=== PATIENT | female | born 1955 | race Caucasian/White ===

== ENCOUNTER 2017-01-13 11:44 | Emergency (ER) | payer OTHER ==
[2017-01-13] MEDS ORDERED: CLINDAMYCIN HCL 150 MG CAPSULE (FP) PO ONE (12:03)
[2017-01-13 12:04] VITALS: BP 144/86; PULSE 75; TEMP 99.8; BMI 25.0
[2017-01-13] MEDS ORDERED: CLINDAMYCIN HCL 150 MG CAPSULE (FP) ONE (12:07)
--- NOTE | 2017-01-13 12:09 | PDOC ---
History of Present Illness - General Chief Complaint: Redness To Affected Area Stated Complaint: LEFT ELBOW REDNESS & SWELLING Time Seen by Provider: 01/13/17 11:54 History Source: Patient Exam Limitations: No Limitations - History of Present Illness Initial Comments: 01/13/17 12:11 61-year-old female with past medical history of cellulitis, asthma presents with left forearm cellulitis. 2 days ago, the patient was picking at a scab and then started noticing increasing redness at the proximal left forearm. Does not extend to the left elbow. Denies any changes in the range of motion of the left elbow.*Reporting low-grade temperatures of 100. Denies cough, vomiting, diarrhea. Otherwise nontoxic appearing. Past History - Past Medical History Allergies/Adverse Reactions: Allergies Allergy/AdvReac Type Severity Reaction Status Date / Time Penicillins Allergy Rash Verified 03/08/13 10:13 Sulfa (Sulfonamide Allergy Rash Verified 03/08/13 10:13 Antibiotics) Home Medications: Ambulatory Orders Salmeterol/Fluticasone [Advair 250Mcg/50Mcg] 1 inh PO BID 06/25/13 Clindamycin [Cleocin -] 450 mg PO Q8H #63 capsule 01/13/17 Fexofenadine HCl [Nidia Allergy] 180 mg PO DAILY PRN 01/13/17 Tramadol HCl 50 mg PO DAILY PRN 01/13/17 Asthma: Yes - Suicide/Smoking/Psychosocial Hx Smoking Status: Yes Smoking History: Current every day smoker Have you smoked in the past 12 months: Yes Number of Cigarettes Smoked Daily: 20 'Breaking Loose' booklet given: 03/08/13 Hx Alcohol Use: No Drug/Substance Use Hx: No Substance Use Type: None Hx Substance Use Treatment: No Review of Systems - Review of Systems Able to Perform ROS?: Yes Comments:: 01/13/17 12:12 GENERAL/CONSTITUTIONAL: +fever. no weakness HEAD, EYES, EARS, NOSE AND THROAT: No change in vision. No ear pain or discharge. No sore throat. CARDIOVASCULAR: No chest pain or shortness of breath. RESPIRATORY: No cough, wheezing, or hemoptysis. GASTROINTESTINAL: No abdominal pain, nausea, vomiting, diarrhea, or decreased PO intolerance. GENITOURINARY: No dysuria, frequency, or change in urination. MUSCULOSKELETAL: No joint or muscle swelling or pain. No neck or back pain. SKIN: + Skin Infection NEUROLOGIC: No headache, vertigo, loss of consciousness, or change in strength/ sensation. ENDOCRINE: No increased thirst. No abnormal weight change. HEMATOLOGIC/LYMPHATIC: No anemia, easy bleeding, or history of blood clots. ALLERGIC/IMMUNOLOGIC: No hives or skin allergy. *Physical Exam - Physical Exam Comments: 01/13/17 12:13 GENERAL: Awake, alert, and fully oriented, in no acute distress. HEAD: No signs of trauma EYES: PERRLA, EOMI, sclera anicteric, conjunctiva clear ENT: Auricles normal inspection, hearing grossly normal, nares patent, oropharynx clear without exudates. NECK: Normal ROM, supple, no lymphadenopathy, JVD, or masses EXTREMITIES: Normal range of motion, no edema. No clubbing or cyanosis. No cords, erythema, or tenderness NEUROLOGICAL: Cranial nerves II through XII grossly intact. Normal speech, normal gait SKIN: Warm, Dry, normal turgor. ~2x3 cm erythema with very mild drainage proximal left forearm. Does not extend into the left elbow. No fluctuance but mild induration. Medical Decision Making - Medical Decision Making 01/13/17 12:13 Vital Signs Temp Pulse Resp BP Pulse Ox 99.8 F H 75 15 144/86 97 01/13/17 11:45 01/13/17 11:45 01/13/17 11:45 01/13/17 11:45 01/13/17 11:45 Pt reports prior history of staph infection. Wound culture obtained. However, wound does not have an abscess to incise. Given drug allergies, will prescribe clindamycin. Instructed pt that if she develops diarrhea to return to the ER. Pt states that she can follow up with DR. Graf in the next few days. Discharge diagnosis: cellulitis I discussed the physical exam findings, ancillary test results and final diagnoses with the patient. I answered all of the patient's questions. The patient was satisfied with the care received and felt comfortable with the discharge plan and treatment plan. The patient will call their primary care physician within 24 hours to arrange follow-up and will return to the Emergency Department with any new, persistant or worsening symptoms. *DC/Admit/Observation/Transfer Diagnosis at time of Disposition: Cellulitis Qualifiers: Site of cellulitis: extremity Site of cellulitis of extremity: upper extremity Laterality: left Qualified Code(s): L03.114 - Cellulitis of left upper limb - Discharge Dispostion Condition at time of disposition: Good Admit: No - Prescriptions Prescriptions: Clindamycin [Cleocin -] 450 mg PO Q8H #63 capsule - Referrals Referrals: Corey Graf MD [Primary Care Provider] - - Patient Instructions Printed Discharge Instructions: DI for Cellulitis -- Adult Additional Instructions: Please take the clindamycin 450 mg every 8 hours for 7 days. It is important that you complete these antibiotics. If you develop severe diarrhea from this medication, please stop and return to the ER. I have obtained a wound culture. Please call your doctor and have your wound culture followed up.
[2017-01-13] MEDS ORDERED: ACETAMINOPHEN 325 MG TABLET (FP) PO ONE (12:11)
[2017-01-13] MEDS ORDERED: ACETAMINOPHEN 325 MG TABLET (FP) ONE (12:13)
== END 2017-01-13 12:29 | disposition home or self-care (01) ==
LOC: FER 11:44
DX: L03.114 Cellulitis of left upper limb (principal); J45.909 Unspecified asthma, uncomplicated; F17.210 Nicotine dependence, cigarettes, uncomplicated
CPT/HCPCS: 87070; 87186; 87205; 99281-25

== ENCOUNTER 2017-03-25 17:54 | Emergency (ER) | payer OTHER ==
[2017-03-25 17:58] VITALS: BMI 24.7
[2017-03-25 18:10] VITALS: BP 147/84; PULSE 77; TEMP 97.9
--- NOTE | 2017-03-25 18:13 | PDOC ---
History of Present Illness - History of Present Illness Initial Comments: 03/25/17 18:25 61 year old female, with significant past medical history of osteoarthritis (on tramadol), asthma, and cellulitis, who presents to the emergency room with right shoulder and right elbow pain s/p mechanical fall at work today. The patient states that she was carrying a bowl of fruit in the kitchen when she fell and landed on her right side. She denies LOC, head trauma, headache, lightheadedness, dizziness prior to and after the fall. She reports that the shoulder and elbow pain is worse with overhead movements and abducting the right arm. She also reports pain to the right side of her neck that is worse with movement. She notes that she took tramadol for right knee arthritis around 2:00pm. Denies back pain. She denies any other injuries. Allergies: penicillin, sulfa PCP: Dr. Graf Ortho: Dr. Welch <Tejal Friend - Last Filed: 03/25/17 18:35> - General History Source: Patient Exam Limitations: No Limitations <Thor Pozo - Last Filed: 03/28/17 07:13> - General Chief Complaint: Pain, Acute Stated Complaint: right arm pain Time Seen by Provider: 03/25/17 17:59 Past History <Tejal Friend - Last Filed: 03/25/17 18:35> - Past Medical History Asthma: Yes COPD: No - Suicide/Smoking/Psychosocial Hx Smoking Status: Yes Smoking History: Current every day smoker Have you smoked in the past 12 months: Yes Number of Cigarettes Smoked Daily: 10 Information on smoking cessation initiated: Yes 'Breaking Loose' booklet given: 03/25/17 Hx Alcohol Use: No Drug/Substance Use Hx: No Substance Use Type: None Hx Substance Use Treatment: No <Thor Pozo - Last Filed: 03/28/17 07:13> - Past Medical History Allergies/Adverse Reactions: Allergies Allergy/AdvReac Type Severity Reaction Status Date / Time Penicillins Allergy Rash Verified 03/25/17 17:55 Sulfa (Sulfonamide Allergy Rash Verified 03/25/17 17:55 Antibiotics) Home Medications: Ambulatory Orders Salmeterol/Fluticasone [Advair 250Mcg/50Mcg] 1 inh PO BID 03/06/14 Tramadol HCl 50 mg PO DAILY PRN 01/13/17 Docusate Sodium [Colace -] 100 mg PO TID #21 capsule 03/25/17 Ibuprofen 400 mg PO Q6H PRN #20 tablet 03/25/17 Oxycodone HCl/Acetaminophen [Percocet 5-325 mg Tablet] 1 tab PO Q6H PRN #20 tablet MDD 4 03/25/17 Review of Systems - Review of Systems Able to Perform ROS?: Yes Comments:: 03/25/17 18:26 GENERAL/CONSTITUTIONAL: No fever or chills. No weakness. HEAD, EYES, EARS, NOSE AND THROAT: No change in vision. No ear pain or discharge. No sore throat. CARDIOVASCULAR: No chest pain or shortness of breath. RESPIRATORY: No cough, wheezing, or hemoptysis. GASTROINTESTINAL: No nausea, vomiting, diarrhea or constipation. GENITOURINARY: No dysuria, frequency, or change in urination. MUSCULOSKELETAL: +right sided neck pain, shoulder pain, and elbow pain. No back pain. SKIN: No rash NEUROLOGIC: No headache, vertigo, loss of consciousness, or change in strength/ sensation. ENDOCRINE: No increased thirst. No abnormal weight change. HEMATOLOGIC/LYMPHATIC: No anemia, easy bleeding, or history of blood clots. ALLERGIC/IMMUNOLOGIC: No hives or skin allergy. <Tejal Friend - Last Filed: 03/25/17 18:35> *Physical Exam - Vital Signs Last Vital Signs Temp Pulse Resp BP Pulse Ox 97.9 F 77 18 147/84 100 03/25/17 17:55 03/25/17 17:55 03/25/17 17:55 03/25/17 17:55 03/25/17 17:55 - Physical Exam Comments: 03/25/17 18:27 GENERAL: Awake, alert, and fully oriented, in no acute distress HEAD: No signs of trauma EYES: PERRLA, EOMI, sclera anicteric, conjunctiva clear NECK: Normal ROM, supple, no lymphadenopathy, JVD, or masses RIGHT UPPER EXTREMITY: +limited ROM secondary to pain. 2+ distal pulse. Medial radial nerve sensation intact. NEUROLOGICAL: Cranial nerves II through XII grossly intact. Normal speech, normal gait SKIN: Warm, Dry, normal turgor, no rashes or lesions noted. <Tejal Friend - Last Filed: 03/25/17 18:35> - Vital Signs Last Vital Signs Temp Pulse Resp BP Pulse Ox 97.9 F 77 18 147/84 100 03/25/17 17:55 03/25/17 17:55 03/25/17 17:55 03/25/17 17:55 03/25/17 17:55 - Physical Exam Comments: 03/28/17 07:12 TTP proximal R humerus. Sensation over the deltoid. 2+ radial pulse. Strength intact in the median/radian/ulnar nerve distribution <Thor Pozo - Last Filed: 03/28/17 07:13> ED Treatment Course - Medications Given in the ED: ED Medications Discontinued Medications Generic Name Dose Route Start Last Admin Trade Name Freq PRN Reason Stop Dose Admin Oxycodone/Acetaminophen 1 combo 03/25/17 18:07 03/25/17 18:10 Percocet 5/325 - PO 03/25/17 18:08 1 combo ONCE ONE Administration <Tejal Friend - Last Filed: 03/25/17 18:35> - RADIOLOGY Radiology Studies Ordered: Category Date Time Status ELBOW-RIGHT [RAD] Stat Radiology 03/25/17 18:08 Ordered HUMERUS-RIGHT [RAD] Stat Radiology 03/25/17 18:08 Ordered SHOULDER-RIGHT [RAD] Stat Radiology 03/25/17 18:08 Ordered - Medications Given in the ED: ED Medications Discontinued Medications Generic Name Dose Route Start Last Admin Trade Name Freq PRN Reason Stop Dose Admin Oxycodone/Acetaminophen 1 combo 03/25/17 18:07 03/25/17 18:10 Percocet 5/325 - PO 03/25/17 18:08 1 combo ONCE ONE Administration <Thor Pozo - Last Filed: 03/28/17 07:13> Medical Decision Making - Medical Decision Making 03/25/17 18:13 A portion of this note was documented by scribe services under my direction. I have reviewed the details of the note, within reason, and agree with the documentation with the following case summary and management plan written by me. Patient treated in the ED. Nursing notes are reviewed and incorporated into the medical decision-making. Vital signs reviewed. Vital Signs Temp Pulse Resp BP Pulse Ox 97.9 F 77 18 147/84 100 03/25/17 17:55 03/25/17 17:55 03/25/17 17:55 03/25/17 17:55 03/25/17 17:55 61-year-old female patient with history of asthma cellulitis, arthritis presents to the emergency department for mechanical fall. The patient was in the kitchen and carrying a bowl soup when she slipped and fell and landed on her right side. She's complained bout right shoulder, right humerus, right elbow pain. Denies head trauma or loss of consciousness. Denies any numbness or weakness. Patient is neurovascularly intact. She is complaining of right shoulder, right elbow and right humerus pain. We'll give her pain control and obtain x-rays and reassess. We'll rule out fractures. 03/25/17 18:40 Xray, pending official radiology read, demonstrates a displaced proximal humerus fracture. Pt has seen DR. Welch in the past for her knees. Page placed out to Dr. Welch for consultation. In the meantime, pt placed in a sling and given percocets. Pt advised to elevate head of bed to 45 to 60 degrees for pain control, ice. She will need to follow up as an outpatient this week for definitive care. Pt continues to remain neurovascularly intact. I discussed the physical exam findings, ancillary test results and final diagnoses with the patient. I answered all of the patient's questions. The patient was satisfied with the care received and felt comfortable with the discharge plan and treatment plan. The patient will call their primary care physician within 24 hours to arrange follow-up and will return to the Emergency Department with any new, persistant or worsening symptoms. <Thor Pozo - Last Filed: 03/28/17 07:13> *DC/Admit/Observation/Transfer - Attestations Scribe Attestion: 03/25/17 18:27 Documentation prepared by LUCAS Phillips, acting as medical sociologist for Thor Pozo MD. <Tejal Friend - Last Filed: 03/25/17 18:35> - Discharge Dispostion Admit: No <Thor Pozo - Last Filed: 03/28/17 07:13> Diagnosis at time of Disposition: Humerus fracture Qualifiers: Encounter type: initial encounter Humerus Location: proximal Fracture type: closed Fracture morphology: other fracture Fracture alignment: displaced Laterality: right Qualified Code(s): S42.291A - Other displaced fracture of upper end of right humerus, initial encounter for closed fracture - Discharge Dispostion Disposition: HOME Condition at time of disposition: Stable - Prescriptions Prescriptions: Docusate Sodium [Colace -] 100 mg PO TID #21 capsule Ibuprofen 400 mg PO Q6H PRN #20 tablet PRN Reason: Pain Oxycodone HCl/Acetaminophen [Percocet 5-325 mg Tablet] 1 tab PO Q6H PRN #20 tablet MDD 4 PRN Reason: Pain - Referrals Referrals: Corey Graf MD [Primary Care Provider] - Lucas Welch MD [Staff Physician] - - Patient Instructions Printed Discharge Instructions: How to Use a Sling, DI for Shoulder Fracture Additional Instructions: Please take 400 mg ibuprofen (motrin) every 6 hours as needed for pain. For additional relief, take a tablet of percocet every 6 hours as needed for pain control. This medication may make you constipated, so please take 100 mg colace every 8 hours for the next week. (This is a stool softener). It is very important that you keep your arm in a sling. Ice as needed throughout the day. Call Dr. Welch's office and schedule an appointment this week. Let them know that you were seen by Dr. Pozo at [facility] and have a shoulder fracture (right displaced proximal humerus fracture). Please call Dr. Graf and let him know that you were seen in the ED as well. - Post Discharge Activity
== END 2017-03-25 19:00 | disposition home or self-care (01) ==
LOC: FER 17:54
DX: S42.291A Other displaced fracture of upper end of right humerus, initial encounter for closed fracture (principal); W18.39XA Other fall on same level, initial encounter; Y93.89 Activity, other specified; Y92.000 Kitchen of unspecified non-institutional (private) residence as the place of occurrence of the external cause; J45.909 Unspecified asthma, uncomplicated; F17.210 Nicotine dependence, cigarettes, uncomplicated
CPT/HCPCS: 73030-TC-RT; 73060-TC-RT; 73070-TC-RT; 99282-25

== ENCOUNTER 2017-04-03 06:24 | Day surgery (SDC) | payer OTHER ==
[2017-03-28 11:40] VITALS: BMI 25.0
--- NOTE | 2017-04-03 09:38 | HP ---
Satellite H - Chief Complaint Chief Complaint: right shoulder fx - Past Medical History Allergies/Adverse Reactions: Allergies Allergy/AdvReac Type Severity Reaction Status Date / Time Sulfa (Sulfonamide Allergy Severe Rash Verified 04/03/17 08:56 Antibiotics) Penicillins Allergy Rash Verified 04/03/17 08:56 - Current Medications Current Medications: Home Medications Medication Instructions Recorded Salmeterol/Fluticasone [Advair 1 inh PO BID 06/25/13 250Mcg/50Mcg -] Tramadol HCl 50 mg PO DAILY PRN 01/13/17 Docusate Sodium [Colace -] 100 mg PO TID #21 capsule 03/25/17 Ibuprofen 400 mg PO Q6H PRN #20 tablet 03/25/17 Hydrocodone/Acetaminophen [Vicodin 1 each PO Q6H PRN #50 tablet MDD 4 04/03/17 5-300 mg Tablet] Satellite Physical Exam - Physical Examination Vital Signs: Vital Signs Period Temp Pulse Resp BP Sys/Grant Pulse Ox Last 24 Hr 98.1 F 83 20 132/84 98 General Appearance: Well Nourished, Well Developed, Alert & Oriented x3 ENT: Clear Lung: Normal air movement Heart: Regular rate & rhythm Extremities: Other (right shoulder- + swelling, + ttp, decr rom, nvi xrays show displaced proxiaml humerus fx fx) Neurological: Intact, Alert, Oriented Satellite Impression/Plan - Impression/Plan Impression: right proximal humerus fx Operative Procedure: right proximal humerus orif Date to be Performed: 04/03/17
[2017-04-03] MEDS ORDERED: ROPIVACAINE HCL 0.5% 30ML VIAL ONE (09:43)
[2017-04-03] MEDS ORDERED: MIDAZOLAM HCL 2 MG/2 ML SINGLE DOSE VIAL ONE ×2 (09:44)
[2017-04-03] MEDS ORDERED: ROCURONIUM BROMIDE 50 MG/5 ML VIAL ONE (10:04)
[2017-04-03] MEDS ORDERED: ceFAZolin SODIUM 1 GM VIAL ONE (10:04)
[2017-04-03] MEDS ORDERED: PROPOFOL 20 ML ONE (10:04)
[2017-04-03] MEDS ORDERED: ceFAZolin SODIUM 1 GM VIAL IVPB ONE (10:27)
[2017-04-03] MEDS ORDERED: ONDANSETRON 4 MG/2 ML VIAL IVPUSH PRN (10:54)
[2017-04-03] MEDS ORDERED: IBUPROFEN 800 MG/8 ML IJ IVPB PRN (10:54)
[2017-04-03] MEDS ORDERED: GLYCOPYRROLATE 0.2 MG/1 ML VIAL ONE (10:58)
[2017-04-03] MEDS ORDERED: DEXAMETHASONE SOD PHOSPHATE 4 MG/1 ML VIAL ONE (10:58)
[2017-04-03] MEDS ORDERED: NEOSTIGMINE METHYLSULFATE 0.5 MG/ML - 10 ML MDV ONE (10:58)
[2017-04-03] MEDS ORDERED: LACTATED RINGERS SOLUTION 1,000 ML IV SCH (11:00)
--- NOTE | 2017-04-03 11:43 | OP ---
Operative Note - Note: Operative Date: 04/03/17 ([facility]) Pre-Operative Diagnosis: right proximal humerus fx Operation: right proximal humerus orif Post-Operative Diagnosis: Same as Pre-op Surgeon: Lucas Welch Tip Banding Machine Operator: Lit Walls Anesthesiologist/FLOOR COVERING LAYER: Tory Adkins Anesthesia: General, Local Estimated Blood Loss (mls): 25 Operative Report Dictated: Yes
[2017-04-03 12:59] VITALS: TEMP 97.4
[2017-04-03 14:42] VITALS: BP 138/57; PULSE 94
--- NOTE | 2017-04-04 10:59 | OP ---
DATE OF OPERATION: 04/03/2017 PREOPERATIVE DIAGNOSIS: Displaced right 3-part proximal humerus fracture. POSTOPERATIVE DIAGNOSIS: Displaced right 3-part proximal humerus fracture. PROCEDURE: Open reduction and internal fixation, right proximal humerus fracture. SURGICAL ATTENDING: Lucas Welch MD VOCATIONAL NURSE: CAYDEN Gayle ANESTHESIA: Regional and general. CLOSURE: FiberWire for the rotator cuff looped around 5.0 cannulated screws, 0 Vicryl for the deltoid, 2-0 for subcutaneous, and 3-0 Monocryl subcuticular, skin glue for the skin. ESTIMATED BLOOD LOSS: Negligible. COMPLICATIONS: None. CONDITION: Recovery room in stable condition. DESCRIPTION OF OPERATIVE PROCEDURE: Patient taken to the operating room on April 03, 2017. Regional and general anesthesia was administered by the anesthesiologist. IV Kefzol administered prophylactically prior to the case. The patient was placed in the beach chair position. The right shoulder area was prepped and draped in the usual sterile fashion. A 5-cm longitudinal incision over the lateral aspect of the acromion, splitting the deltoid, was incised. Flaps were made circumferentially. The deltoid was split not to exceed 5 cm from the origin in the acromion. A Henly retractor was placed in this layer. Multiple No. 2 FiberWire sutures were placed in the rotator cuff from posterior all the way to anterior. We used that to reduce the humeral head and reduce the shaft to the humeral head. One anterior-posterior, one lateral to medial 5.0 cancellous screw with a washer was placed in the proximal humeral shaft below the fracture. Looped around the washers were the FiberWire sutures. The anterior ones were placed around the lateral screw, while the posterior ones were placed around the anterior screw. They were tied snugly, and then, the screw was then further cinched down, fixating the sutures to the bone. Sutures were cut short. The shoulder was taken through a range of motion. The construct was found to be stable. Fluoroscopy in the AP and lateral views revealed excellent position of the screws and excellent reduction of the fracture. The incision was irrigated. The deltoid was closed using No. 1 Vicryl running suture, 2-0 subcuticular and 3-0 Monocryl subcuticular with skin glue. A sterile pressure dressing was applied. The patient was awakened from anesthesia and transferred to recovery in stable condition. No complications. Estimated blood loss: Negligible. Conner JACKSON/[id number]
== END 2017-04-03 14:30 | disposition home or self-care (01) ==
LOC: JASU-SURG 06:24
PROVIDERS: ATTEND Orthopaedic Surgery
PROC: 0PSC04Z Reposition Right Humeral Head with Internal Fixation Device, Open Approach (ICD-10-PCS; principal; 2017-04-03 09:30)
DX: S42.201A Unspecified fracture of upper end of right humerus, initial encounter for closed fracture (principal); X58.XXXA Exposure to other specified factors, initial encounter; Y93.9 Activity, unspecified; Y92.9 Unspecified place or not applicable
CPT/HCPCS: 76000-TC; 94760

== ENCOUNTER 2017-07-03 17:04 | Emergency (ER) | payer OTHER ==
[2017-07-03] MEDS ORDERED: KETOROLAC TROMETHAMINE 60 MG/2 ML VIAL IM ONE (17:44)
[2017-07-03] MEDS ORDERED: ACETAMINOPHEN 325 MG TABLET (FP) PO ONE (17:44)
[2017-07-03] MEDS ORDERED: CYCLOBENZAPRINE HCL 10 MG TABLET (FP) PO ONE (17:44)
--- NOTE | 2017-07-03 17:50 | PDOC ---
History of Present Illness - General History Source: Patient Exam Limitations: No Limitations - History of Present Illness Initial Comments: 07/03/17 17:59 The patient is a 61 year old female, with a significant past medical history of asthma, who presents to the emergency department with left sided back pain since yesterday. The patient reports twisting her torso to put her phone on the counter, when she suddenly felt a twinge in her left mid/lower back. The patient reports associated muscle spasms, and states she thinks her pain is muscular. Patient states she applied heat and ice last night and earlier today with minimum relief of her symptoms. She notes associated left mid back swelling and erythema, and states it might be a minor burn, but denies any pain. She denies any history of back problems/surgeries or shingles. She denies any chest pain, shortness of breath, diaphoresis, or palpitations. She denies any fever, chills, cough, headache, dizziness, or body aches. She denies any abdominal pain, nausea, vomiting, diarrhea, constipation, or changes in bowel/ bladder habits. She denies any recent travel or sick contacts. Allergies: Sulfa(Sulfonamide Antibiotics), Penicillins Past Surgical History: Humerus repair Social History: Current everyday smoker. No ETOH or recreational drug use. Family History: Sister: Mitral valve replacement failure; Extensive family hx of cancer PCP: Dr. Graf Orthopedist: Dr. Welch <Nathalia Brennan - Last Filed: 07/03/17 17:59> <Joao Avery - Last Filed: 07/03/17 18:02> - General Chief Complaint: Back Pain Stated Complaint: LEFT LOWER BACK PAIN Time Seen by Provider: 07/03/17 17:13 Past History <Nathalia Brennan - Last Filed: 07/03/17 17:59> - Past Medical History Asthma: Yes COPD: No - Suicide/Smoking/Psychosocial Hx Smoking Status: Yes Smoking History: Current every day smoker Have you smoked in the past 12 months: Yes Number of Cigarettes Smoked Daily: 10 'Breaking Loose' booklet given: 03/25/17 Hx Alcohol Use: No Drug/Substance Use Hx: No Substance Use Type: None Hx Substance Use Treatment: No <Joao Avery - Last Filed: 07/03/17 18:02> - Past Medical History Allergies/Adverse Reactions: Allergies Allergy/AdvReac Type Severity Reaction Status Date / Time Sulfa (Sulfonamide Allergy Severe Rash Verified 07/03/17 17:05 Antibiotics) Penicillins Allergy Rash Verified 07/03/17 17:05 Home Medications: Ambulatory Orders Cyclobenzaprine HCl [Flexeril] 10 mg PO TID #15 tablet 07/03/17 Ibuprofen 600 mg PO TID PRN #20 tablet 07/03/17 Review of Systems - Review of Systems Able to Perform ROS?: Yes Comments:: 07/03/17 17:59 CONSTITUTIONAL: Absent: fever, no chills, no fatigue EYES: Absent: visual changes ENT: Absent: ear pain, no sore throat CARDIOVASCULAR: Absent: chest pain, no palpitations RESPIRATORY: Absent: cough, no SOB GI: Absent: abdominal pain, no nausea, no vomiting, no constipation, no diarrhea GENITOURINARY: Absent: dysuria, no frequency, no hematuria MUSKULOSKELETAL: Present: left back pain Absent: no arthralgia, no myalgia SKIN: Present: left mid/lower back erythema and swelling NEURO: Absent: headache <Nathalia Brennan - Last Filed: 07/03/17 17:59> *Physical Exam - Vital Signs Last Vital Signs Temp Pulse Resp BP Pulse Ox 98.2 F 80 20 159/92 97 07/03/17 17:05 07/03/17 17:05 07/03/17 17:05 07/03/17 17:05 07/03/17 17:05 - Physical Exam Comments: 07/03/17 17:59 GENERAL: Well-appearing, well-nourished. No apparent distress. HEENT: Normocephalic, atraumatic. PERRL, EOM intact. CARDIOVASCULAR: Normal S1, S2. Regular rate and rhythm. PULMONARY: Clear to auscultation bilaterally. ABDOMEN: Soft, non-distended, non-tender. EXTREMITIES: Normal ROM in all four extremities. No gross deformities. SKIN: Erythema and induration in an early dermatomal distribution in the left mid back . Otherwise warm, dry. NEUROLOGICAL: No focal neurological deficits. <Nathalia Brennan - Last Filed: 07/03/17 17:59> Medical Decision Making - Medical Decision Making 07/03/17 17:46 Patient's physical exam is entirely normal except for the skin findings The patient's skin findings suggest early zoster, but she states that the skin changes are due to the application of heat in this area almost continuously since yesterday when her symptoms developed.and she is almost certain that this is a minor burn. Also, she relates the onset to a sudden twisting movement of her torso yesterday, when she felt a sudden "twinge" and is certain that this is a pulled muscle The possibility of zoster was raised with the patient and she was advised that if the redness progresses around the flank to the abdomen without the continuous application of heat to the area, that this is probably a "shingles" infection and that she should see her primary physician Dr. Graf for specific medication to treat this condition. In the meantime, she will be treated for musculoskeletal pain. 07/03/17 17:48 <Joao Avery - Last Filed: 07/03/17 18:02> *DC/Admit/Observation/Transfer - Attestations Scribe Attestion: 07/03/17 17:59 Documentation prepared by Nathalia Brennan, acting as manager medical for Joao Childress MD. <Nathalia Brennan - Last Filed: 07/03/17 17:59> - Discharge Dispostion Admit: No <Joao Avery - Last Filed: 07/03/17 18:02> Diagnosis at time of Disposition: Musculoskeletal pain - Discharge Dispostion Disposition: HOME Condition at time of disposition: Improved - Prescriptions Prescriptions: Cyclobenzaprine HCl [Flexeril] 10 mg PO TID #15 tablet Ibuprofen 600 mg PO TID PRN #20 tablet PRN Reason: Pain - Patient Instructions Printed Discharge Instructions: DI for Thoracic Back Pain Additional Instructions: The nature of the or skin changes suggest possible early infection with herpes zoster, otherwise called shingles. If the rash continues to progress around the side into the front of the chest, this is almost certainly shingles and should be treated with specific medication. Either return to the ER or see Dr. Graf for further treatment if this is the case. Otherwise rest, cool compresses, avoid heat injury, and take medication as directed for pain.
[2017-07-03 17:58] VITALS: BP 159/92; PULSE 80; TEMP 98.2; BMI 24.7
[2017-07-03] MEDS ORDERED: KETOROLAC TROMETHAMINE 60 MG/2 ML VIAL ONE (18:01)
[2017-07-03] MEDS ORDERED: CYCLOBENZAPRINE HCL 10 MG TABLET (FP) ONE (18:01)
[2017-07-03] MEDS ORDERED: ACETAMINOPHEN 325 MG TABLET (FP) ONE (18:01)
== END 2017-07-03 18:18 | disposition home or self-care (01) ==
LOC: FER 17:04
PROC: 3E0233Z Introduction of Anti-inflammatory into Muscle, Percutaneous Approach (ICD-10-PCS; principal; 2017-07-03)
DX: M79.1 Myalgia (principal); F17.210 Nicotine dependence, cigarettes, uncomplicated; J45.909 Unspecified asthma, uncomplicated
CPT/HCPCS: 99283-25

== ENCOUNTER 2017-11-05 05:55 | Inpatient (IN) | payer OTHER ==
[2017-10-08 13:25] VITALS: BMI 27.4
[2017-11-05] MEDS ORDERED: TRANEXAMIC ACID 1000 MG/10 ML VIAL IVPUSH ONE (07:05)
[2017-11-05] MEDS ORDERED: CEFAZOLIN 1 GM/D5W 1 GRAM/50 ML BAG IVPB ONE (07:05)
[2017-11-05] MEDS ORDERED: GABAPENTIN 300 MG CAPSULE (FP) PO ONE (07:05)
[2017-11-05] MEDS ORDERED: oxyCODONE HCL 10 MG SUSTAINED ACTING TABLET PO ONE (07:05)
[2017-11-05] MEDS ORDERED: ceFAZolin SODIUM 1 GM VIAL ONE ×2 (07:21→09:27)
[2017-11-05] MEDS ORDERED: VANCOMYCIN 1,000 MG VIAL (RESTRICTED TO ID ONLY) ONE (07:21)
--- NOTE | 2017-11-05 07:52 | HP ---
Satellite [facility] - Chief Complaint Chief Complaint: left knee pain - Past Medical History Allergies/Adverse Reactions: Allergies Allergy/AdvReac Type Severity Reaction Status Date / Time Sulfa (Sulfonamide Allergy Severe Rash Verified 11/05/17 07:40 Antibiotics) Penicillins Allergy Rash Verified 11/05/17 07:40 - Current Medications Current Medications: Home Medications Medication Instructions Recorded Budesonide/Formeterol Fumarate 2 inh PO BID 10/08/17 [SYMBICORT 80/4.5mcg -] Hydrocodone/Acetaminophen 1 each PO ASDIR PRN 10/08/17 [Hydrocodone-Acetamin 5-325 mg] Ibuprofen [Motrin -] 400 mg PO ASDIR PRN 10/08/17 Salmeterol/Fluticasone [Advair 1 inh PO BID 10/08/17 100Mcg/50Mcg -] Tramadol HCl 50 mg PO ASDIR PRN 10/08/17 Satellite Physical Exam - Physical Examination Vital Signs: Vital Signs Period Temp Pulse Resp BP Sys/Grant Pulse Ox Last 24 Hr 97.6 F 69 18 129/76 General Appearance: Well Nourished, Well Developed, Alert & Oriented x3 ENT: Clear Lung: Normal air movement Heart: Regular rate & rhythm Extremities: Other (left knee- + swelling, + ttp, dec rom, nvi xrays show grade 4 tricompartmental djd) Neurological: Intact, Alert, Oriented Satellite Impression/Plan - Impression/Plan Impression: left knee djd Operative Procedure: left lani tkr Date to be Performed: 11/05/17
[2017-11-05] MEDS ORDERED: MIDAZOLAM HCL 2 MG/2 ML SINGLE DOSE VIAL ONE (08:47)
[2017-11-05] MEDS ORDERED: BUPIVACAINE HCL/PF 2.5 MG/ML - 30 ML VIAL IJ ONE (08:48)
[2017-11-05] MEDS ORDERED: BUPIVACAINE LIPOSOME/PF (EXPAREL) 266 MG/20 ML VIAL ONE (08:48)
[2017-11-05] MEDS ORDERED: PROPOFOL 20 ML ONE ×3 (09:23)
[2017-11-05] MEDS ORDERED: SUCCINYLCHOLINE CHLORIDE 200 MG/10 ML VIAL ONE (09:23)
[2017-11-05] MEDS ORDERED: ONDANSETRON 4 MG/2 ML VIAL ONE (09:27)
[2017-11-05] MEDS ORDERED: TRANEXAMIC ACID 1000 MG/10 ML VIAL ONE (09:27)
[2017-11-05] MEDS ORDERED: DEXAMETHASONE SOD PHOSPHATE 4 MG/1 ML VIAL ONE (09:27)
[2017-11-05] MEDS ORDERED: VANCOMYCIN 1,000 MG VIAL (RESTRICTED TO ID ONLY) IVPB ONE (10:02)
[2017-11-05] MEDS ORDERED: PROMETHAZINE HCL 25 MG/1 ML VIAL IVPB PRN (10:42)
[2017-11-05] MEDS ORDERED: oxyCODONE HCL 5 MG TABLET PO PRN (10:42)
[2017-11-05] MEDS ORDERED: ONDANSETRON 4 MG/2 ML VIAL IVPUSH PRN ×2 (10:42→10:48)
[2017-11-05] MEDS ORDERED: MAGNESIUM HYDROX 2400MG/30ML ORAL SUSPENSION 30 ML CUP PO PRN (10:48)
[2017-11-05] MEDS ORDERED: MAG HYDROX/AL HYDROX/SIMETH 30 ML UNIT-DOSE CUP PO PRN (10:48)
--- NOTE | 2017-11-05 10:50 | OP ---
Operative Note - Note: Operative Date: 11/05/17 (cailin) Pre-Operative Diagnosis: left knee djd Operation: left lani tkr Post-Operative Diagnosis: Same as Pre-op Surgeon: Lucas Welch Licensed Optician: Lit Walls Anesthesiologist/IT SOFTWARE ENGINEER: Castillo Lua Anesthesia: Spinal, Local Specimens Removed: bone fragments Estimated Blood Loss (mls): 200 Operative Report Dictated: Yes
[2017-11-05] MEDS ORDERED: LACTATED RINGERS SOLUTION 1,000 ML IV SCH (11:00)
[2017-11-05] MEDS ORDERED: ACETAMINOPHEN 325 MG TABLET (FP) PO ONE (12:00)
[2017-11-05] MEDS ORDERED: ACETAMINOPHEN 325 MG TABLET (FP) ONE (12:05)
[2017-11-05] MEDS: oxyCODONE HCL 5 MG TABLET PO PRN ×2 (13:57→22:02)
[2017-11-05] MEDS ORDERED: CEFAZOLIN 1 GM/D5W 1 GRAM/50 ML BAG IVPB SCH (17:00)
[2017-11-05] MEDS: ACETAMINOPHEN 325 MG TABLET (FP) PO SCH (18:29)
--- NOTE | 2017-11-05 19:36 | SPEC ---
DATE OF OPERATION: 11/05/2017 PREOPERATIVE DIAGNOSIS: Degenerative joint disease, left knee. POSTOPERATIVE DIAGNOSIS: Degenerative joint disease, left knee. PROCEDURE: Left total knee replacement, Press-Fit, with robotic-assisted navigation (MAKOplasty). SURGICAL ATTENDING: Lucas Weclh MD SALES FORCE ADMINISTRATOR: CAYDEN Gayle ANESTHESIA: Regional and spinal. CLOSURE: A Triathlon Press-Fit knee system with a 2 femur, 2 tibia, 11 polyethylene, a 32 patella; No. 1 Vicryl, fascia; 0 and 2-0 for subcutaneous; 3-0 Monocryl subcuticular with skin glue for skin; 4-0 undyed Vicryl for pin sites. ESTIMATED BLOOD LOSS: Negligible. TOURNIQUET TIME: Approximately 25 minutes. COMPLICATIONS: None. CONDITION: To recovery room in stable condition. DESCRIPTION OF OPERATIVE PROCEDURE: Patient was taken to the operating room on November 05, 2017. Regional and spinal anesthesia was administered by the anesthesiologist. IV Kefzol was administered prophylactically prior to the case as well as TXA. The left lower extremity was prepped and draped in the usual sterile fashion. The midline 10- to 12-cm longitudinal incision was made. Hemostasis was achieved with Bovie cautery. Sharp dissection was carried down to the extensor mechanism which was perform the procedure. Medial parapatellar arthrotomy was then performed, leaving a cuff of tissue for later closure. The patella was inverted and the knee was flexed up. The fat pad was excised. Subperiosteal dissection was done on the anteromedial proximal tibia until the knee was able to be brought forward. This was facilitated by taking the ACL, PCL and medial and lateral menisci. Checkpoints were placed in both the femur and in the tibia. Two parallel threaded pins were drilled superior to the knee joint through the already made incision from anterior to posterior just going through the anterior cortex but just engaging but not going through the posterior cortex. Two threaded pins were drilled through 2 small stab incisions in parallel fashion 1 handbreadth below the tibial tubercle through the anterior cortex of the tibia and engaging but not going through the posterior cortex. Both sets of pins were attached to navigation arrays for the CRUZ system. The knee was then registered with the navigation system with center of rotation of the hip, medial and lateral malleoli and multiple sites both on the tibia and on the femur. Confirmation of excellent registration was confirmed by "popping the bubbles." At this time, the knee was thoroughly inspected to remove all osteophytes around the knee. The knee was then tensioned in varus/valgus at both full extension and at 90 degrees of flexion to ascertain our gaps. The virtual position of the components was optimized to ensure equal gaps throughout the range of motion. Once this was performed, the robot was brought into the field, was registered. The bone was cut as per the specifications on both the tibia and on the femur. The box cuts were then made as well. Excellent trial stability was obtained on the femur. The tibial baseplate was allowed to "find itself" and then was clipped into place. Confirmation of excellent external rotation of that component was confirmed by the navigation device as well. The patella was calibered for thickness and cut at the appropriate level. The appropriate lollipop was used to drill 3 holes in the patella and a trial asymmetric patellar button was applied. The knee was taken through a range of motion and found to have excellent stability from full extension to full flexion with excellent tracking of the patella. The trial components were then removed. The lug holes were drilled in the femur. The cementless keel was punched in the tibia. The real Press-Fit components were malleted into place, first with the tibia and then with the femur, and then the patella was crimped into place as well. The real polyethylene liner was then clipped into place. Range of motion, stability and tracking were as described earlier. The knee was thoroughly irrigated with copious amounts of irrigation. Vancomycin powder was placed inside the joint. The medial parapatellar arthrotomy was then closed using No. 1 Vicryl interrupted suture. Post closure of the arthrotomy, the knee was taken through a range of motion and found to have no undue tension on the repair. The subcutaneous was then pulse antibiotic irrigated, closed with 0 and 2-0 Vicryl and 3-0 Monocryl subcuticular with skin glue for the skin. Prior to closure, the checkpoints were removed as were the threaded pins. The tibial pin sites were closed with 4-0 undyed Vicryl. A sterile pressure Aquacel dressing was applied. The total blood loss was negligible. No complication. Patient was transferred to recovery in stable condition. Conner [id number]
[2017-11-05] MEDS: BUDESONIDE/FORMETEROL FUMARATE 80/4.5 mcg INHALER IH SCH (21:34)
[2017-11-05] MEDS: oxyCODONE HCL 10 MG SUSTAINED ACTING TABLET PO SCH (21:35)
[2017-11-05] MEDS: SENNOSIDES/DOCUSATE COMBO (SENNA PLUS) TABLET (UD) PO SCH (21:35)
[2017-11-05] MEDS ORDERED: FLUTICASONE/SALMETEROL 100 MCG/50 MCG DISKUS IH SCH (22:00)
[2017-11-06] MEDS: ACETAMINOPHEN 325 MG TABLET (FP) PO SCH ×5 (00:04→23:35)
[2017-11-06] MEDS ORDERED: CEFAZOLIN 1 GM/D5W 1 GRAM/50 ML BAG IVPB SCH (02:00)
[2017-11-06 08:16] LABS: HEMATOCRIT 36.1 % (32.4-45.2); HEMOGLOBIN 12.2 GM/dl (10.7-15.3); MCH 29.8 pg (25.7-33.7); MCHC 33.9 g/dl (32.0-36.0); MEAN PLT VOLUME 9.3 fl (7.5-11.1); PLATELET COUNT 347 K/MM3 (134-434); RDW 12.1 % (11.6-15.6)
[2017-11-06] MEDS: ASPIRIN 325 MG TABLET PO SCH (08:16)
[2017-11-06] MEDS: oxyCODONE HCL 5 MG TABLET PO PRN ×4 (08:16→23:36)
--- NOTE | 2017-11-06 09:35 | PN ---
Progress Note (short form) - Note Progress Note: Ortho Pt seen and examined s/p left lani tkr pod #1 Selected Entries 11/06/17 06:00 Temperature 98.2 F Pulse Rate 74 Respiratory 18 Rate Blood Pressure 106/84 Laboratory Tests 11/06/17 07:35 WBC 10.0 Hgb 12.2 Hct 36.1 Plt Count 347 dressing c/d/i, rom 0-40, calf soft, nt nvi a/p PT dvt ppx pain control d/c home tomorrow if stable
[2017-11-06] MEDS: oxyCODONE HCL 10 MG SUSTAINED ACTING TABLET PO SCH ×2 (09:37→22:01)
[2017-11-06] MEDS: MULTIVITAMINS (DAILY MVI) TABLET (FP) PO SCH (09:37)
[2017-11-06] MEDS: BUDESONIDE/FORMETEROL FUMARATE 80/4.5 mcg INHALER IH SCH ×2 (09:37→22:02)
[2017-11-06] MEDS: SENNOSIDES/DOCUSATE COMBO (SENNA PLUS) TABLET (UD) PO SCH ×2 (09:37→22:02)
[2017-11-06] MEDS: PANTOPRAZOLE 40 MG TABLET (FP) PO SCH (09:37)
--- NOTE | 2017-11-06 12:52 | PN ---
Progress Note (short form) - Note Progress Note: 62 F POD1 s/p left TKR under spinal with peripheral nerve blocks Pt states that pain is well controlled and denies any anesthetic complications. AVSS. Motor and sensory function intact in bilateral lower extremities. Continue current regimen
[2017-11-07] MEDS: ACETAMINOPHEN 325 MG TABLET (FP) PO SCH (05:50)
[2017-11-07] MEDS: oxyCODONE HCL 5 MG TABLET PO PRN (06:38)
[2017-11-07 06:51] VITALS: BP 120/57; PULSE 82; TEMP 99.3
--- NOTE | 2017-11-07 08:20 | PN ---
Progress Note (short form) - Note Progress Note: Ortho Pt seen and examined s/p left lani tkr pod #2 Selected Entries 11/07/17 06:50 Temperature 99.3 F Pulse Rate 82 Respiratory 18 Rate Blood Pressure 120/57 Laboratory Tests 11/07/17 07:40 WBC Pending Hgb Pending Hct Pending Plt Count Pending dressing c/d/i, rom 0-60, calf soft, nt nvi a/p PT dvt ppx pain control d/c home today f/u in 1 week
--- NOTE | 2017-11-07 08:20 | DS ---
Physical Examination Vital Signs: Vital Signs Temperature 99.3 F 11/07/17 06:50 Pulse Rate 82 11/07/17 06:50 Respiratory Rate 18 11/07/17 06:50 Blood Pressure 120/57 11/07/17 06:50 O2 Sat by Pulse Oximetry (%) 96 11/07/17 06:50 Discharge Summary Reason For Visit: OSTEOARTHRITIS Procedures: Principal: left tkr Hospital Course: admitted for elective left lani tkr, uneventful post-op, stable for d/c Condition: Good - Instructions Diet, Activity, Other Instructions: Post-op Instructions-Total Knee Replacement Call the office for a follow-up appointment in 1 week - [phone] Aspirin 325mg daily for 6 weeks. Pain medication was sent into your pharmacy. Apply Graduated Compression Stockings (TEDs) to both lower extremities- remove daily for hygiene ONLY Apply Sequential Compression Device (SCDs) to both Lower extremities remove for PT and hygiene ONLY Apply cold packs to affected area for 15 minutes every 2 hours. Physical Therapist will come to your home for the first 5 days. You will be set up with outpatient PT at your first post-operative visit. Patient may ambulate as tolerated-encourage self care (at least every 2-3 hours while awake) with walker or cane Maintain Aquacel (waterproof) dressing to operative wound (will be removed by surgeon at first office visit) Shower with Aquacel dressing in place-if Aquacel integrity compromised, remove and apply dry sterile dressing and notify Orthopedist. DO NOT SHOWER unless Orthopedists approves without Aquacel dressing CONTACT THE OFFICE FOR ANY CHANGE IN YOUR CONDITION (for example-fever greater than 102 degrees, excessive bleeding from operative site, purulent drainage, severe swelling or pain) GO TO THE EMERGENCY ROOM IF THERE IS A MEDICAL EMERGENCY Knee Precautions: * Keep a rolled towel under affected heel while in bed or chair (to keep knee in extension) * Keep affected leg elevated except during mealtimes * DO NOT PLACE PILLOW UNDER AFFECTED KNEE * If you have any questions, please do not hesitate to call the office - . Referrals: Lucas Welch MD [Staff Physician] - Disposition: VNS/HOME HEALTH CARE - Home Medications Comprehensive Discharge Medication List: Ambulatory Orders Budesonide/Formeterol Fumarate [SYMBICORT 80/4.5mcg -] 2 inh PO BID 06/19/18 Hydrocodone/Acetaminophen [Hydrocodone-Acetamin 5-325 mg] 1 each PO ASDIR PRN Ibuprofen [Motrin -] 400 mg PO ASDIR PRN 10/08/17 Salmeterol/Fluticasone [Advair 100Mcg/50Mcg -] 1 inh PO BID 10/08/17 Tramadol HCl 50 mg PO ASDIR PRN 10/08/17 Aspirin [ASA -] 325 mg PO DAILY@0800 tablet 11/05/17 Hydrocodone/Acetaminophen [Bisbee 5-325 Tablet] 1 - 2 each PO Q6H PRN #50 tablet MDD 6 11/05/17
[2017-11-07] MEDS: ASPIRIN 325 MG TABLET PO SCH (08:53)
[2017-11-07 09:14] LABS: HEMATOCRIT 33.9 % (32.4-45.2); HEMOGLOBIN 11.4 GM/dl (10.7-15.3); MCH 29.9 pg (25.7-33.7); MCHC 33.7 g/dl (32.0-36.0); MEAN CELL VOLUME 88.8 fl (80-96); MEAN PLT VOLUME 9.1 fl (7.5-11.1); PLATELET COUNT 303 K/MM3 (134-434); RBC 3.82 M/mm3 (3.60-5.2); RDW 12.4 % (11.6-15.6); WHITE BLOOD COUNT 9.3 K/mm3 (4.0-10.8)
[2017-11-07] MEDS: SENNOSIDES/DOCUSATE COMBO (SENNA PLUS) TABLET (UD) PO SCH (09:15)
[2017-11-07] MEDS: oxyCODONE HCL 10 MG SUSTAINED ACTING TABLET PO SCH (09:16)
[2017-11-07] MEDS: PANTOPRAZOLE 40 MG TABLET (FP) PO SCH (09:17)
[2017-11-07] MEDS: BUDESONIDE/FORMETEROL FUMARATE 80/4.5 mcg INHALER IH SCH (09:17)
[2017-11-07] MEDS: MULTIVITAMINS (DAILY MVI) TABLET (FP) PO SCH (09:17)
== END 2017-11-07 11:30 | disposition home health service (06) | DRG 302 ==
LOC: FM/S 05:55
PROVIDERS: ADMIT Orthopaedic Surgery; ATTEND Orthopaedic Surgery
PROC: 8E0Y0CZ Robotic Assisted Procedure of Lower Extremity, Open Approach (ICD-10-PCS; 2017-11-05)
PROC: 0SRD06A Replacement of Left Knee Joint with Oxidized Zirconium on Polyethylene Synthetic Substitute, Uncemented, Open Approach (ICD-10-PCS; principal; 2017-11-05 09:37)
DX: M17.12 Unilateral primary osteoarthritis, left knee (principal)
CPT/HCPCS: 36415; 73560-TC-LT-FY; 85027; 88304-TC; 88311-TC; 94760; 97116-GP; 97162-GP

== ENCOUNTER 2018-03-23 09:17 | Emergency (ER) | payer OTHER ==
--- NOTE | 2018-03-23 09:21 | PDOC ---
Attending Attestation - Resident Resident Name: Aaron Manning - ED Attending Attestation I have performed the following: I have examined & evaluated the patient, The case was reviewed & discussed with the resident, I agree w/resident's findings & plan - HPI HPI: 03/23/18 09:34 62 y/ female with right knee pain for 1 week. Just had knee replacement to left knee last month and doing well. Did not fall or injury her right knee. Hurts to walk on it, may be compensating a little. Takes Tramadol for pain when needed. No swelling, fever or chills. No redness. - Physicial Exam PE: 03/23/18 09:35 VS stable Heart: RRR without murmur Lungs: CTA b/l no wheezing EXT: Left knee healing well, right knee mild pain to medial meniscus, no swelling or redness, full ROM, pulses 2+/4 b/l in LE, no focal deficits noted, no calf tenderness Neuro: strength 5+/5 b/l in LE, no focal deficits noted - Medical Decision Making 03/23/18 10:13 Ice, Motrin, rest, elevate Daniel wrap during day, off at night Follow up with Orthopedics Dr. Welch May need MRI, appears to be over compensation due to recent surgery on left knee Xray right knee: DJD, no fracture seen Case discussed with resident aWlker and agree with plan Final diagnosis: right knee pain/DJD
[2018-03-23 09:28] VITALS: BP 150/88; PULSE 84; TEMP 98.6; BMI 27.4
--- NOTE | 2018-03-23 09:50 | PDOC ---
History of Present Illness - General Chief Complaint: Pain Stated Complaint: RT KNEE PAIN Time Seen by Provider: 03/23/18 09:19 History Source: Patient Exam Limitations: No Limitations - History of Present Illness Initial Comments: 03/23/18 09:32 62 yo female pmh asthma, osteoarthritis and recent L Knee replacement by Dr. Welch (October 2017) presents to the ED with 1 week of worsening right knee pain which became suddenly excruciating last night after getting out of bed. Mechanism of injury last night was not significant, described as routine action of getting out of bed and bearing weight but this time, sharp localized pain to the medial right knee occurred. Pt admits to pain with knee extension and with bearing weight along with difficulty ambulating. Of note, pt states after her left knee replacement for osteoarthritis she had great improvement in with decreased pain and states she has been able to walk over 1 mile a day for the last month without difficulty. Pt denies weakness or sensory changes in the right leg or foot. Past History - Past Medical History Allergies/Adverse Reactions: Allergies Allergy/AdvReac Type Severity Reaction Status Date / Time ciprofloxacin [From Cipro] Allergy Severe Difficulty Verified 03/23/18 09:22 Breathing Sulfa (Sulfonamide Allergy Severe Rash Verified 03/23/18 09:22 Antibiotics) Penicillins Allergy Rash Verified 03/23/18 09:22 Home Medications: Ambulatory Orders Budesonide/Formeterol Fumarate [SYMBICORT 80/4.5mcg -] 2 inh PO BID 10/08/17 Hydrocodone/Acetaminophen [Hydrocodone-Acetamin 5-325 mg] 1 each PO ASDIR PRN Ibuprofen [Motrin -] 400 mg PO ASDIR PRN 10/08/17 Salmeterol/Fluticasone [Advair 100Mcg/50Mcg -] 1 inh PO BID 10/08/17 Tramadol HCl 50 mg PO ASDIR PRN 10/08/17 Aspirin [ASA -] 325 mg PO DAILY@0800 tablet 11/05/17 Hydrocodone/Acetaminophen [Flasher 5-325 Tablet] 1 - 2 each PO Q6H PRN #50 tablet MDD 6 11/05/17 Anemia: No Asthma: Yes (X 30 YEARS ,WELL CONTROLLED) Cancer: No Cardiac Disorders: No CVA: No COPD: No CHF: No Dementia: No Diabetes: No GI Disorders: No Disorders: No HTN: No Hypercholesterolemia: No Liver Disease: No (LIVER ENZYMES SLIGHTLY ELEVATED,HAVING LIVER SONO 10/14/17) Seizures: No Thyroid Disease: No - Surgical History Abdominal Surgery: No Appendectomy: No Cardiac Surgery: No Cholecystectomy: No Lung Surgery: No Neurologic Surgery: No Orthopedic Surgery: Yes (RIGHT SHOULDER ORIF 04/07) - Suicide/Smoking/Psychosocial Hx Smoking Status: Yes Smoking History: Never smoked Have you smoked in the past 12 months: No Number of Cigarettes Smoked Daily: 10 Information on smoking cessation initiated: No 'Breaking Loose' booklet given: 07/03/17 Hx Alcohol Use: No Drug/Substance Use Hx: No Substance Use Type: None Hx Substance Use Treatment: No Review of Systems - Review of Systems Respiratory: No: Shortness of Breath Cardiac (ROS): No: Chest Pain Musculoskeletal: Yes: Joint Pain (right knee). No: Back Pain, Joint Swelling, Muscle Weakness Integumentary: No: Change in Color Neurological: Yes: Unsteady Gait. No: Numbness, Paresthesia, Weakness *Physical Exam - Vital Signs Last Vital Signs Temp Pulse Resp BP Pulse Ox 98.6 F 84 20 150/88 100 03/23/18 09:17 03/23/18 09:17 03/23/18 09:17 03/23/18 09:17 03/23/18 09:17 - Physical Exam General Appearance: Yes: Nourished, Appropriately Dressed. No: Apparent Distress HEENT: positive: EOMI Respiratory/Chest: positive: Lungs Clear Cardiovascular: positive: Regular Rhythm, Regular Rate. negative: Edema Vascular Pulses: Dorsalis-Pedis (R): 3+, Doralis-Pedis (L): 3+ Extremity: positive: Normal Capillary Refill, Normal Inspection. negative: Normal Range of Motion (decreased right knee flexion to 90 degrees when compared with left 110), Swelling, Calf Tenderness, Erythema, Inflammation Integumentary: positive: Normal Color, Dry, Warm Neurologic: positive: Fully Oriented, Alert, Normal Mood/Affect, Normal Response , Motor Strength 5/5 (equal bilateral knee flexion and extension). negative: Numbness, Sensory Deficit Moderate Sedation - Procedure Monitoring Vital Signs: Procedure Monitoring Vital Signs Temperature 98.6 F 03/23/18 09:17 Pulse Rate 84 03/23/18 09:17 Respiratory Rate 20 03/23/18 09:17 Blood Pressure 150/88 03/23/18 09:17 O2 Sat by Pulse Oximetry (%) 100 03/23/18 09:17 ED Treatment Course - RADIOLOGY Radiology Studies Ordered: Category Date Time Status KNEE 4 POS-RIGHT [RAD] Stat Radiology 03/23/18 09:32 Ordered Medical Decision Making - Medical Decision Making 03/23/18 09:54 62 yo female presents with 1 wweek of worsening r knee pain and sudden onset difficulty ambulating after getting out of bed last night. Pt had recent L knee replacement for osteoarthritis by Dr. Welch in October and her next appointment is 1 year from now. vitals WNL PE: Patient ambulates into the ED favoring right leg. General: AOX3 NAD MSK: No swelling, erythema, warmth of lesions noted ROM decreased in knee flexion on right Negative anterior and posterior drawer R knee, negative medial and lateral tension on R knee, negative Paul on the right. No patellar grinding noted. 3 view knee x ray ordered X ray ED read shows mild degenerative changes mostly on the medial side of the knee. MRI suggested for further investigation of pts knee pain. Will DC home with Ortho f/u along with JOSELYN bandage, RICE and strict return precautions *DC/Admit/Observation/Transfer Diagnosis at time of Disposition: Knee pain Qualifiers: Chronicity: unspecified Laterality: right Qualified Code(s): M25.561 - Pain in right knee - Discharge Dispostion Disposition: HOME Condition at time of disposition: Stable Decision to Admit order: No - Referrals Referrals: Lucas Welch MD [Staff Physician] - - Patient Instructions Printed Discharge Instructions: DI for Knee Pain Additional Instructions: Please make appointment with your primary care doctor and Orthopedic Surgeon Dr. Welch within the next 24 - 48 hours. Rest, Ice and Compress (JOSELYN bandage) the right knee for pain relief along with your home medications as needed and as prescribed by your Orthopedic Surgeon. Return to the emergency room for new or worsening symptoms including but not limited to: severe pain not relieved by medications, decreased strength or sensation in the right lef or foot, fevers or chills with warmth to the right knee joint. Thank you. - Post Discharge Activity
== END 2018-03-23 10:21 | disposition home or self-care (01) ==
LOC: FER 09:17
PROC: 3E0333Z Introduction of Anti-inflammatory into Peripheral Vein, Percutaneous Approach (ICD-10-PCS; principal; 2018-03-23)
PROC: 3E0337Z Introduction of Electrolytic and Water Balance Substance into Peripheral Vein, Percutaneous Approach (ICD-10-PCS; 2018-03-23)
DX: N83.201 Unspecified ovarian cyst, right side (principal)
CPT/HCPCS: 73562-TC-RT-FY; 99282-25

== ENCOUNTER 2018-09-02 07:42 | Day surgery (SDC) | payer OTHER | END 2018-09-03 14:39 | disposition home health service (06) | LOC: FASUSAT 07:42 → FM/S 07:50 → FASUSAT 07:50 → FM/S 07:50 ==

== ENCOUNTER 2019-03-04 06:35 | Day surgery (SDC) | payer OTHER ==
[2019-03-02 16:51] VITALS: BMI 28.3
[2019-03-04] MEDS ORDERED: ROPIVACAINE HCL 0.5% 30ML VIAL ONE (07:24)
[2019-03-04] MEDS ORDERED: MIDAZOLAM HCL 2 MG/2 ML SINGLE DOSE VIAL ONE (07:25)
[2019-03-04] MEDS ORDERED: SODIUM CHLORIDE 0.9% P/F 10 ML VIAL IJ ONE ×2 (08:16→09:05)
[2019-03-04] MEDS ORDERED: ceFAZolin SODIUM 1 GM VIAL ONE (08:16)
[2019-03-04] MEDS ORDERED: DEXAMETHASONE SOD PHOSPHATE 4 MG/1 ML VIAL ONE (08:16)
[2019-03-04] MEDS ORDERED: LIDOCAINE HCL/PF 2% SDV 5ML VIAL ONE (08:16)
[2019-03-04] MEDS ORDERED: LIDOCAINE HCL 1%, 10 MG/ML (20ML VIAL) ONE (08:22)
[2019-03-04] MEDS ORDERED: CLINDAMYCIN PHOSPHATE 600 MG/4 ML VIAL ONE ×2 (09:02→09:03)
[2019-03-04] MEDS ORDERED: ALBUTEROL SO4 8 GM HFA INHALER IH PRN (09:29)
--- NOTE | 2019-03-04 09:34 | HP ---
Satellite H - Chief Complaint Chief Complaint: right shoulder pain - Past Medical History Allergies/Adverse Reactions: Allergies Allergy/AdvReac Type Severity Reaction Status Date / Time ciprofloxacin [From Cipro] Allergy Severe Difficulty Verified 03/04/19 08:03 Breathing Sulfa (Sulfonamide Allergy Severe Rash Verified 03/04/19 08:03 Antibiotics) Penicillins Allergy Rash Verified 03/04/19 08:03 - Current Medications Current Medications: Home Medications Medication Instructions Recorded Ibuprofen [Motrin -] 400 mg PO ASDIR PRN 10/08/17 Albuterol Sulfate [Albuterol 2 puff IH ASDIR PRN 08/21/18 Sulfate Hfa] Budesonide/Formeterol Fumarate 2 inh PO BID 08/21/18 [SYMBICORT 160/4.5mcg -] Hydrocodone/Acetaminophen 1 each PO Q6H #30 tablet MDD 4 03/04/19 [Hydrocodone-Acetamin 5-325 mg] Satellite Physical Exam - Physical Examination Vital Signs: Vital Signs Period Temp Pulse Resp BP Sys/Grant Pulse Ox Last 24 Hr 98.2 F 59 18 166/85 99 General Appearance: Well Nourished, Well Developed, Alert & Oriented x3 ENT: Clear Lung: Normal air movement Extremities: Other (right shoulder- + well healed scar, + swellng, + ttp, decr rom, nvi, xrays show djd, avn humeral head, 2 screws from previous ORIF) Neurological: Intact, Alert, Oriented Satellite Impression/Plan - Impression/Plan Impression: right shoulder djd, avn Operative Procedure: right reverse TSA Date to be Performed: 03/04/19
[2019-03-04] MEDS ORDERED: ceFAZolin SODIUM 1 GM VIAL IVPB ONE (12:29)
[2019-03-04] MEDS ORDERED: SEVOFLURANE 250 ML BTL ONE (13:38)
[2019-03-04] MEDS ORDERED: PROPOFOL 20 ML ONE (16:10)
[2019-03-04] MEDS ORDERED: ONDANSETRON 4 MG/2 ML VIAL IVPUSH PRN (16:26)
[2019-03-04] MEDS ORDERED: NEOSTIGMINE METHYLSULFATE 0.5 MG/ML - 10 ML MDV ONE (16:32)
[2019-03-04] MEDS ORDERED: GLYCOPYRROLATE 0.2 MG/1 ML VIAL ONE (16:32)
--- NOTE | 2019-03-04 16:41 | OP ---
Operative Note - Note: Operative Date: 03/04/19 ([facility]) Pre-Operative Diagnosis: right shoulder djd, avn Operation: right reverse TSA, removal of hardware Post-Operative Diagnosis: Same as Pre-op Surgeon: Lucas Welch Maintenance Representative: Fox Arevalo) Anesthesiologist/[employer] HEAD: Saad Tinajero Anesthesia: General, Local Specimens Removed: humeral head, 1.5 screws, 2 washers, fiberwire Estimated Blood Loss (mls): 500
[2019-03-04] MEDS ORDERED: ONDANSETRON 4 MG/2 ML VIAL ONE (16:58)
[2019-03-04] MEDS: LACTATED RINGERS SOLUTION 1,000 ML IV SCH ×2 (18:38→23:32)
[2019-03-04] MEDS: BUDESONIDE/FORMETEROL FUMARATE 160/4.5 mcg INHALER IH SCH ×2 (18:48→23:31)
[2019-03-04] MEDS: oxyCODONE HCL 5 MG TABLET PO PRN (20:30)
[2019-03-04] MEDS: ACETAMINOPHEN 325 MG TABLET (FP) PO SCH (20:58)
[2019-03-04] MEDS: ceFAZolin 2 GRAM PREMIX BAG IVPB SCH (20:58)
[2019-03-04 21:09] LABS: HEMATOCRIT 33.6 % (32.4-45.2); MCH 29.8 pg (25.7-33.7); MCHC 32.7 g/dl (32.0-36.0); MEAN CELL VOLUME 91.2 fl (80-96); MEAN PLT VOLUME 10.1 fl (7.5-11.1); PLATELET COUNT 298 K/MM3 (134-434); RBC 3.68 M/mm3 (3.60-5.2); RDW 13.8 % (11.6-15.6)
[2019-03-05] MEDS: oxyCODONE HCL 5 MG TABLET PO PRN ×4 (00:03→09:56)
[2019-03-05] MEDS: ACETAMINOPHEN 325 MG TABLET (FP) PO SCH ×2 (02:58→09:44)
[2019-03-05] MEDS: ceFAZolin 2 GRAM PREMIX BAG IVPB SCH ×2 (04:53→11:31)
[2019-03-05] MEDS: BUDESONIDE/FORMETEROL FUMARATE 160/4.5 mcg INHALER IH SCH (09:45)
--- NOTE | 2019-03-05 09:45 | PN ---
Progress Note (short form) - Note Progress Note: Pt seen and examined. She is doing well on POD #1 s/p revision right shoulder surgery, removal of hardware, Reverse Total Shoulder replacement. She c/o moderate pain, not severe. No other complaints. AVSS H/H stable PE RUE - dressing CDI, no drainage Only mild swelling, I loosened the upper strap of the shoulder immobilizer NVI, nl sensation throughout: nl in the distribution of the median, ulnar and radial nerves Good nl ROM of the right elbow, forearm, wrist, fingers in all planes including excellent/nl extension of the elbow, wrist and all fingers/thumb Imp Doing very well on POD #1. Rec DC home this morning We went over activity restrictions, and recommended ROM exercises F/u with me in my office in 1 week
--- NOTE | 2019-03-05 12:33 | OP ---
DATE OF OPERATION: 03/04/2019 PREOPERATIVE DIAGNOSIS: Avascular necrosis, right humeral head status post proximal humerus fracture and rotator cuff open reduction internal fixation surgery. SURGERY: Right shoulder removal of hardware and reverse total shoulder replacement. SURGEON: Juan Islas MD OPERATIONS CONSULTANT: CAYDEN Gayle ANESTHESIA: Saad Tinajero CRNA, Corey Ortiz MD, right interscalene block and LMA anesthesia. DRAINS: None. COMPLICATIONS: None. SPECIMEN: Right humeral head/AVN tissue and 5.0 cannulated screws and washers. BLOOD LOSS: 150 mL. BLOOD GIVEN: None. FLUID REPLACEMENT: 1500 mL Plasma-Lyte IMPLANTS: Brinda Reunion reverse total shoulder replacement system with a 28-mm glenoid plate, 32-mm Glenosphere, size No. 7 humeral fracture stem cemented with a 4-mm baseplate, and a 32-mm constrained polyethylene liner. INDICATIONS: Patient is a 63-year-old female with a preoperative diagnosis of right humeral head avascular necrosis after she sustained a significant right proximal humerus fracture and ORIF of the rotator cuff and greater tuberosity with two 5.0 cannulated screws and washers. The head went on to from AVN. She has constant pain and has elected to go forward with the surgery. We had extensive preoperative discussions. She understands this is not a straightforward case. This is a revision of sorts. She will have a cemented prosthesis. We plan on this staying in forever, but there is possibility of revision of this procedure as well. She understands she will never obtain full range of motion, strength, or function, but she is hoping to be pain free with her arms down at her side and in front such as at a table or desk. That is her goal. I think that is obtainable. All questions and concerns were addressed for her and her family. DESCRIPTION OF PROCEDURE: The patient was brought to the operating room. Peripheral IV place. IV sedation given. A right interscalene block was performed, 2 g of IV Ancef were given. LMA anesthesia was induced. She was placed into the beach chair position with ample padding throughout. The right upper extremity was prepped and draped in a usual sterile fashion. A deltopectoral approach was marked out with a marking pen. Subcutaneous hemostasis was achieved with a bipolar cautery. Dissection was done with the Littler scissors and my finger bluntly. We found the cephalic vein and the deltopectoral interval. I was able to dissect on the lateral side at the cephalic vein. The cephalic vein was brought in a medial direction, and small perforators were cauterized. I did a blunt dissection through h deltopectoral interval and sharp dissection through the deltopectoral fascia. Weitlaner and Jc retractors were placed deeper into the wound exposing the anterior capsule of the shoulder. There was obvious deformity here. A Bovie cautery was used to cut down through the capsule. Medial and lateral flaps were raised. Immediately necrotic AVN tissue was coming out through the capsulotomy. This was evacuated with both irrigation and suction and with a rongeur and passed off the field as specimen. The humeral head was completely falling apart. There was some articular cartilage, which was removed as well. This was peeled off the capsule on the medial side underneath the conjoined tendon and laterally underneath the deltoid and rotator cuff. The entire joint was full of fibrotic synovitis. This was also removed with a cautery and the rongeur. I could then see the glenoid, which was extremely small. We knew it was small from a preoperative CT scan, but it was even smaller than expected. That being said, there was good bone to work with. This was thin in anterior and posterior plane. We had good visualization of the glenoid with a pickle fork and Holmann and Jc retractors. Next, we isolated the top of the humerus, and I used an oscillating saw to cut at the appropriate length and angle for further implantation. There was a lot of very sclerotic bone in this area. I was not able to use the canal finder to get down it was so sclerotic. I then located the two 5.0-mm cannulated screws and washers. One of these came out easily. The other one was difficult to find. It took approximately 1 hour to locate using the large C-arm fluoroscopy guidance. It was underneath bone, which had completely grown over the screw head and washer. About 50% of the screw was removed. The screw was broken in the middle. The other 1/2 was in the more medial aspect of the humerus. I did not want to dig out that bone and ruin the stability afforded by the medial calcar, and it would not be in the way of the implantation as it was not in the humeral canal. Next, starting with a very small drill bit, I went sequentially up bigger just drilling the top sclerotic bone, which had inhibited our access to the humeral canal. I got into the canal and then used the very smallest flexible reamer to go down the canal making sure at all times the reamer and all instrumentation was inside the canal. I was able to my hand around about 2/3 of the humerus not only stabilizing it when I was drilling but also to feel it, and there was no point at which I was concerned that the cortex was disrupted. Next, we used small, sequential broaches in the standard fashion and then put in a No. 7 long, thin fracture stem, which would be cemented. It seemed to be at the appropriate length and position. This was then removed. Next, our attention turned to the glenoid in the standard fashion 1st using the guide, the pin. We documented a center position with a 10-degree offset and then reamer until we had the inferior medullary "smile" of bleeding bone then put on the smallest glenoid baseplate that was available, which was a 28. That was held in place with a center screw. We got excellent fixation. I then was able to put in a superior, posterior, and inferior screw all with excellent length and fixation. The desktop architect a 16, the posterior screw was a 32, the bottom screw was a 32. There was no more glenoid anteriorly, so I did not want to put in a screw and not get good bony fixation. Therefore, there were 4 screws total all bicortical holding the glenoid baseplate in place. I then put on a 32-mm Glenosphere. This would help with referencing the humeral stem. Next, I put in a trial 7 stem with a 32-mm constrained polyethylene liner and a 4-mm baseplate. It had excellent stability in all planes, excellent motion. There was really no downside. Next, I irrigated and cleaned up the humeral canal of blood, dried it, mixed 2 bags of Simplex cement, and using the gun and the pressurization in a standard pressurization technique, but not doing it too hard, I put the cement into the humeral canal and filled the gaps. The [place] Accolade long, thin fracture stem humeral stem No. 7 was then precoated with cement and put down to the appropriate depth using a 20-degree version neal. It was held in place until all the cement dried. The excess cement was removed. I then trialed it again. It looked good, so I put in the actual 32-mm constrained polyethylene liner and No. 4-mm baseplate. This was tapped into placed with a Hernandez taper. I then reduced it, tested stability again. It was really excellent. The humerus moved as a unit with the prosthesis. Overall, it was quite good. There was no excess cement that I could appreciate. The area was copiously irrigated and washed out and the capsule closed in a very significant fashion. There was very good anterior capsule remaining with No. 1 Vicryl suture. This would give it anteriorly stability. Overall, at this point in the case it had been almost 3 months. I was extremely happy with the way the surgery went removing the avascular necrotic bone and the stability of the prosthesis; however, when I did large C-arm fluoroscopy x-rays, I could see that some cement had extruded from the humerus. As there is no previous fracture that far down, the screw holes were up top and were directly visualized and were not seen to extrude cement, and I did not over pressurize, I think it is just that she had very sclerotic bone and there were areas where it was able to come through. I could not feel any large pockets of cements, it never got that hot what I was able to hold in my hand off the back table, and I think she has some adipose tissue. I did not think it would cause a problem. I did, however, speak to the family after the surgery. I let them know exactly what I saw with the fluoroscopy and the extruded cement, and I told them that we will follow her clinically. If it does not bother her, it is biocompatible and there would be no reason to do anything about it. If, however, she was having trouble, irritation of the muscle, tendon, or nerve or if she could feel it and it bothered her then we could do a surgical excision of the cement, although I did express to them that I hoped that would be unnecessary. They understand, agreed, and all questions were addressed. They were not concerned. Next, the deltopectoral fascia was closed with 0 Vicryl. The deltoid was reapproximated taking great care to protect the cephalic vein. The deep dermal layer was closed with 2-0 Vicryl. A running, subcuticular 3-0 V-Lock 90 was used to reapproximate the skin. It was covered with an Aquacel dressing. As mentioned, total surgical time was 3 hours. Total blood loss was about 150 mL. There were no complications during the case. She was completely solid throughout the case, and she was brought to the regular recovery room in stable condition. JUAN ISLAS M.D. [id number]
[2019-03-05 12:48] VITALS: BP 102/62; PULSE 94; TEMP 98.5
--- NOTE | 2019-03-06 18:27 | PATH ---
Surgical Pathology Report Patient Name: ROM SOLANO [facility]. Rec. #: [id number] /Age/Gender: 1955 (Age: 63) / F Account: [id number] Location: AMBULATORY SURG Taken: 03/04/2019 Received: 03/05/2019 Reported: 03/06/2019 Physicians: Lucas Welch M.D. Specimen(s) Received HARDWARE RIGHT HUMERUS Clinical History Right shoulder osteoarthritis Final Diagnosis HARDWARE, HUMERUS, RIGHT, REMOVAL: SURGICAL HARDWARE. MACROSCOPIC DIAGNOSIS. Electronically Signed Lorene Rocha M.D. Gross Description Received fresh labeled "hardware right humerus," are 3 metallic foreign bodies (2 screws and 1 washer) ranging from 0.8-2.6 cm in greatest dimension. No soft tissue is present. No sections are submitted, gross only. /03/05/201903/05/2019
== END 2019-03-05 13:00 | disposition home or self-care (01) ==
LOC: JASUSAT 06:35 → J6S 18:27 → JASUSAT 03-05 13:00
PROVIDERS: ATTEND Orthopaedic Surgery
PROC: 0RPJ04Z Removal of Internal Fixation Device from Right Shoulder Joint, Open Approach (ICD-10-PCS; 2019-03-04)
PROC: 0RRJ00Z Replacement of Right Shoulder Joint with Reverse Ball and Socket Synthetic Substitute, Open Approach (ICD-10-PCS; principal; 2019-03-04 09:00)
DX: M87.221 Osteonecrosis due to previous trauma, right humerus (principal)
CPT/HCPCS: 36415; 76000-TC-FY; 85027; 86850; 86900; 86901; 88300-TC; 94010; 94760; 97116-GP; 97161-GP

== ENCOUNTER 2020-01-01 18:52 | Emergency (ER) | payer OTHER ==
[2020-01-01 19:12] VITALS: BP 134/87; PULSE 80; TEMP 98.3; BMI 26.9
--- NOTE | 2020-01-01 19:32 | PDOC ---
History of Present Illness - General Chief Complaint: Pain, Acute Stated Complaint: RT ANKLE PAIN Time Seen by Provider: 01/01/20 19:09 History Source: Patient Exam Limitations: No Limitations - History of Present Illness Initial Comments: 01/01/20 19:29 This is a 64-year-old female who has a history of osteoporosis. Patient said she fell about 3 weeks ago and initially her right ankle was not bothering her but she does a lot of walking and over the last several days her right ankle has begun bothering her. Patient said it is not tender to touch but hurts when she bears weight. Patient otherwise denies any other complaints. Allergies: as per nursing notes Past Medical History: none Social history: Lives with family. No smoking. No alcohol. No illicit drugs. Surgical history: None General: No fevers or chills, no weakness, no weight loss HEENT: No change in vision. No sore throat,. No ear pain CardioVascular: no chest discomfort. No shortness of breath Respiratory:No cough, or wheezing. Gastrointestinal: no nausea, vomiting, diarrhea or constipation, No rectal bleeding Genitourinary: No dysuria, hematuria, or frequency Musculoskeletal: Right ankle discomfort Neurologic: No headache, vertigo, dizziness or loss of consciousness Psychiatric: nor depression Skin: No rashes or easy bruising Endocrine: no increased thirst or abnormal weight change Allergic: no skin or latex allergy All other systems reviewed and normal GENERAL: The patient is awake, alert, and fully oriented, in no acute distress. HEENT:Head is normal with no signs of trauma. Eyes: Pupils equal, round and reactive to light, Ears, and Throat are normal. Neck is supple. No Lymphadenopathy. EXTREMITIES:atraumatic, there is no swelling, ecchymosis or pain on palpation of the malleolus. The neurovascular is intact. NEUROLOGICAL: Normal speech, normal gait. PSYCH: Normal mood, normal affect. SKIN: Warm, Dry, normal turgor, no rashes or lesions noted. X-ray was obtained and interpreted by me as negative for any acute pathology. Patient given Daniel wrap and told to wear it while walking for some additional support and to follow-up with either her primary care doctor or an orthopedist if symptoms persist Past History - Medical History Allergies/Adverse Reactions: Allergies Allergy/AdvReac Type Severity Reaction Status Date / Time ciprofloxacin [From Cipro] Allergy Severe Difficulty Verified 03/04/19 08:03 Breathing Sulfa (Sulfonamide Allergy Severe Rash Verified 03/04/19 08:03 Antibiotics) Penicillins Allergy Rash Verified 03/04/19 08:03 Home Medications: Ambulatory Orders Albuterol Sulfate [Albuterol Sulfate Hfa] 2 puff IH ASDIR PRN 08/21/18 Budesonide/Formeterol Fumarate [SYMBICORT 160/4.5mcg -] 2 inh PO BID 08/21/18 Gabapentin [Neurontin -] 100 mg PO Q8H 01/01/20 Methocarbamol [Robaxin -] 750 mg PO BID 01/01/20 Anemia: No Asthma: Yes Cancer: No Cardiac Disorders: No CVA: No COPD: No CHF: No Dementia: No Diabetes: No GI Disorders: No Disorders: No HTN: No Hypercholesterolemia: No Liver Disease: Yes (slightly elevated liver enzymes) Seizures: No Thyroid Disease: No Other medical history: OSTEOPOROSIS, NERVE DAMAGE - Surgical History Abdominal Surgery: No Appendectomy: No Cardiac Surgery: No Cholecystectomy: No Lung Surgery: No Neurologic Surgery: No Orthopedic Surgery: Yes (RIGHT SHOULDER ORIF 04/07) - Psycho-Social/Smoking History Smoking Status: Yes Smoking History: Current every day smoker Have you smoked in the past 12 months: Yes Number of Cigarettes Smoked Daily: 5 Information on smoking cessation initiated: Yes 'Breaking Loose' booklet given: 03/04/19 *Physical Exam - Vital Signs Last Vital Signs Temp Pulse Resp BP Pulse Ox 98.3 F 80 18 134/87 100 01/01/20 19:05 01/01/20 19:05 01/01/20 19:05 01/01/20 19:05 01/01/20 19:05 Discharge - Discharge Information Problems reviewed: Yes Clinical Impression/Diagnosis: Right ankle sprain Qualifiers: Encounter type: initial encounter Involved ligament of ankle: unspecified ligament Qualified Code(s): S93.401A - Sprain of unspecified ligament of right ankle, initial encounter Condition: Stable Disposition: HOME - Admission No - Follow up/Referral Referrals: Corey Graf MD [Primary Care Provider] - - Patient Discharge Instructions Additional Instructions: Tylenol or Motrin as needed for pain. Wear the Daniel wrap for additional support when walking. Return to the emergency department immediately with ANY new, persistent or worsening symptoms. Continue any medications as previously prescribed by your physician. You should follow up with your primary doctor as soon as possible regarding today's emergency department visit. . Please make sure your doctor reviews the results of your emergency evaluation. Thank you for coming to the Emergency Department today for your care. It was a pleasure to see you today. Please note that your evaluation is INCOMPLETE until you follow-up with your doctor. - Post Discharge Activity
== END 2020-01-01 19:34 | disposition home or self-care (01) ==
LOC: FER 18:52
DX: S93.401A Sprain of unspecified ligament of right ankle, initial encounter (principal)
CPT/HCPCS: 73610-TC-RT-FY; 99283-25

== ENCOUNTER 2020-07-09 09:17 | Emergency (ER) | payer OTHER ==
[2020-07-09 09:27] VITALS: BP 158/94; PULSE 73; TEMP 98.2; BMI 29.2
[2020-07-09] MEDS ORDERED: DIPHTH,PERTUSS(ACELL),TET 0.5 ML DISP.SYRIN IM ONE (09:35)
== END 2020-07-09 09:58 | disposition home or self-care (01) ==
LOC: FER 09:17
PROC: 3E0234Z Introduction of Serum, Toxoid and Vaccine into Muscle, Percutaneous Approach (ICD-10-PCS; principal; 2020-07-09)
DX: L03.114 Cellulitis of left upper limb (principal)
CPT/HCPCS: 90471; 99284-25

== ENCOUNTER 2021-04-22 11:06 | Emergency (ER) | payer OTHER ==
[2021-04-22 11:29] VITALS: BP 161/71; PULSE 72; TEMP 99.2; BMI 27.7
== END 2021-04-22 13:13 | disposition home or self-care (01) ==
LOC: FER 11:06
PROC: 2W3CX1Z Immobilization of Right Lower Arm using Splint (ICD-10-PCS; principal; 2021-04-22)
DX: S62.101A Fracture of unspecified carpal bone, right wrist, initial encounter for closed fracture (principal); W01.0XXA Fall on same level from slipping, tripping and stumbling without subsequent striking against object, initial encounter
CPT/HCPCS: 73090-TC-RT-FY; 73130-TC-RT-FY; 99284-25

== ENCOUNTER 2021-08-17 08:38 | Emergency (ER) | payer OTHER ==
[2021-08-17 08:46] VITALS: BMI 27.5
[2021-08-17 13:31] LABS: ALBUMIN 3.8 g/dl (3.4-5.0); BILIRUBIN,TOTAL 0.7 mg/dl (0.2-1); CALCIUM 8.9 mg/dl (8.5-10); CREATININE 0.7 mg/dl (0.55-1.3); TOT PROT 6.6 g/dl (6.4-8.2)
[2021-08-17 13:41] LABS: HEMATOCRIT 38.9 % (32.4-45.2); HEMOGLOBIN 13.3 G/dL (10.7-15.3); MCH 30.4 pg (25.7-33.7); MCHC 34.2 g/dl (32.0-36.0); MEAN CELL VOLUME 88.7 fl (80-96); MEAN PLT VOLUME 9.2 fl (7.5-11.1); PLATELET COUNT 218.4 10^3/uL (134-434); RBC 4.38 10^6/uL (3.60-5.2); WHITE BLOOD COUNT 7.4 10^3/uL (4.0-10.8)
[2021-08-17 14:55] VITALS: BP 164/72; PULSE 90; TEMP 98.8
[2021-08-17 16:08] LABS: ADD RBC MORPHOLOGY YES; PLATELET ESTIMATE ADEQUATE
== END 2021-08-17 15:05 | disposition home or self-care (01) ==
LOC: FER 08:38
DX: S42.491A Other displaced fracture of lower end of right humerus, initial encounter for closed fracture (principal); W01.0XXA Fall on same level from slipping, tripping and stumbling without subsequent striking against object, initial encounter
CPT/HCPCS: 36415; 73060-TC-RT-FY; 73070-TC-RT-FY; 80053; 85025; 86850; 86900; 86901; 93005; 99285-25

== ENCOUNTER 2022-08-20 04:47 | Emergency (ER) | payer OTHER ==
[2022-08-20 04:56] VITALS: BP 172/90; PULSE 74; RESP 18; TEMP 97.4; BMI 35.2
[2022-08-20] MEDS ORDERED: KETOROLAC TROMETHAMINE 60 MG/2 ML VIAL IM ONE (05:03)
[2022-08-20] MEDS ORDERED: KETOROLAC TROMETHAMINE 60 MG/2 ML VIAL ONE (05:04)
[2022-08-20] MEDS ORDERED: CYCLOBENZAPRINE HCL 10 MG TABLET (FP) PO ONE (05:23)
[2022-08-20] MEDS ORDERED: CYCLOBENZAPRINE HCL 5 MG TABLET ONE (05:29)
[2022-08-20] MEDS ORDERED: LIDOCAINE 5% TOPICAL PATCH TP ONE (06:05)
[2022-08-20] MEDS ORDERED: LIDOCAINE 5% TOPICAL PATCH ONE (06:07)
[2022-08-20] MEDS ORDERED: LIDOCAINE PATCH REMOVAL MC SCH (22:00)
== END 2022-08-20 06:19 | disposition home or self-care (01) ==
LOC: FER 04:47
PROC: 3E0233Z Introduction of Anti-inflammatory into Muscle, Percutaneous Approach (ICD-10-PCS; principal; 2022-08-20)
DX: M54.6 Pain in thoracic spine (principal)
CPT/HCPCS: 99284-25

== ENCOUNTER 2022-12-09 14:01 | Emergency (ER) | payer OTHER, MEDICARE ==
[2022-12-09 14:30] VITALS: BP 148/88; PULSE 70; RESP 16; TEMP 99; BMI 25.7
== END 2022-12-09 14:42 | disposition home or self-care (01) ==
LOC: FER 14:01
DX: L08.9 Local infection of the skin and subcutaneous tissue, unspecified (principal); L03.113 Cellulitis of right upper limb
CPT/HCPCS: 99283-25

== ENCOUNTER 2023-05-01 15:53 | Emergency (ER) | payer OTHER, MEDICARE ==
[2023-05-01 16:15] VITALS: TEMP 98.2; BMI 26.7
[2023-05-01] MEDS ORDERED: predniSONE 20 MG TABLET (UD) PO ONE (16:25)
[2023-05-01] MEDS ORDERED: predniSONE 20 MG TABLET (UD) ONE (16:29)
[2023-05-01] MEDS: ALBUTEROL SO4 2.5/IPRATROPIUM 0.5 INH SOL 3 ML VIAL.NEB. NEB SCH ×4 (16:37→17:50)
[2023-05-01] MEDS ORDERED: AZITHROMYCIN 250 MG TABLET PO ONE (17:26)
[2023-05-01] MEDS ORDERED: AZITHROMYCIN 500 MG TABLET ONE (17:51)
[2023-05-01 18:11] VITALS: BP 160/99; PULSE 62; RESP 16
== END 2023-05-01 18:35 | disposition home or self-care (01) ==
LOC: FER 15:53
PROC: 3E0F7GC Introduction of Other Therapeutic Substance into Respiratory Tract, Via Natural or Artificial Opening (ICD-10-PCS; principal; 2023-05-01)
DX: R05.9 Cough, unspecified (principal); R06.02 Shortness of breath; R06.2 Wheezing; J45.909 Unspecified asthma, uncomplicated; Z20.822 Contact with and (suspected) exposure to COVID-19
CPT/HCPCS: 0241U-QW; 71046-TC-FY; 99284-25

== ENCOUNTER 2023-12-13 15:34 | Emergency (ER) | payer OTHER, MEDICARE ==
[2023-12-13] MEDS ORDERED: ACETAMINOPHEN 325 MG TABLET (FP) ONE (15:58)
[2023-12-13] MEDS ORDERED: LIDOCAINE 5% TOPICAL PATCH ONE (15:59)
[2023-12-13] MEDS: ACETAMINOPHEN 325 MG TABLET (FP) PO ONE (16:04)
[2023-12-13] MEDS: LIDOCAINE 5% TOPICAL PATCH TP ONE (16:04)
[2023-12-13 17:08] VITALS: BP 153/88; PULSE 64; RESP 16; TEMP 98.4; BMI 27.3
[2023-12-13] MEDS ORDERED: LIDOCAINE PATCH REMOVAL MC SCH (22:00)
== END 2023-12-13 17:08 | disposition home or self-care (01) ==
LOC: FER 15:34
DX: M54.6 Pain in thoracic spine (principal)
CPT/HCPCS: 99283-25